=== PATIENT | female | born 1965 | race Caucasian/White ===

== ENCOUNTER → 2016-08-21 07:20 | Emergency (ER) | payer SELFPAY ==
[~2016-08-21 07:20] MED LIST: Sertraline* 100 MG TAB PO ONE
--- NOTE | 2016-08-21 08:41 | ED ---
Psychiatric Complaint - HPI Summary HPI Summary: 51F with PTSD presents for zoloft prescription refill. She states she was on zoloft and moved her and her primary in [place] can't write a script for here. She states she has been without it for 3 days and feels horrible. She feels fatigued and nauseous from stopping the medication. She denies any SI/HI. - History Of Current Complaint Chief Complaint: EDGeneral Time Seen by Provider: 08/21/16 08:31 - Allergies/Home Medications Allergies/Adverse Reactions: Allergies Allergy/AdvReac Type Severity Reaction Status Date / Time No Known Allergies Allergy Verified 08/21/16 08:47 PMH/Surg Hx/FS Hx/Imm Hx Endocrine/Hematology History: Denies: Hx Anticoagulant Therapy Psychiatric History: Reports: Hx Post Traumatic Stress Disorder Infectious Disease History: No Infectious Disease History: Denies: Traveled Outside the [place] in Last 30 Days - Family History Known Family History: Positive: Hypertension - Social History Alcohol Use: None Substance Use Type: Reports: None Smoking Status (MU): Never Smoked Tobacco Review of Systems Positive: Fatigue. Negative: Fever Negative: Chest Pain Negative: Shortness Of Breath Positive: Nausea All Other Systems Reviewed And Are Negative: Yes Physical Exam Triage Information Reviewed: Yes Vital Signs On Initial Exam: Initial Vitals Temp Pulse Resp BP Pulse Ox 97.1 F 64 20 133/87 99 08/21/16 07:21 08/21/16 07:21 08/21/16 07:21 08/21/16 07:21 08/21/16 07:21 Vital Signs Reviewed: Yes Appearance: Positive: Well-Appearing Skin: Positive: Warm, Dry Head/Face: Positive: Normal Head/Face Inspection Eyes: Positive: Normal, Conjunctiva Clear ENT: Positive: Normal ENT inspection, Pharynx normal, TMs normal Respiratory/Lung Sounds: Positive: Clear to Auscultation, Breath Sounds Present Cardiovascular: Positive: Normal, RRR Abdomen Description: Positive: Nontender, Soft Bowel Sounds: Positive: Present Diagnostics - Vital Signs Vital Signs Temp Pulse Resp BP Pulse Ox 08/21/16 07:24 97.3 F 65 20 133/87 98 08/21/16 07:21 97.1 F 64 20 133/87 99 - Laboratory Lab Statement: Any lab studies that have been ordered have been reviewed, and results considered in the medical decision making process. Course/Dx - Course Course Of Treatment: 51F with PTSD presents for zoloft prescription refill. She states she was on zoloft and moved her and her primary in [place] can't write a script for here. She states she has been without it for 3 days and feels horrible. She feels fatigued and nauseous from stopping the medication. She denies any SI/HI. PE normal. wrote script for zofolt and gave dose here. patient understands and agrees with plan - Differential Dx/Clinical Impression Differential Diagnosis/HQI/PQRI: Positive: Other - PTSD, medication refill Provider Diagnosis: Encounter for medication refill Discharge - Discharge Plan Condition: Good Disposition: HOME Prescriptions: Sertraline* [Zoloft*] 100 mg PO DAILY #30 tab Referrals: [facility] [Outside] Additional Instructions: Take zoloft as prescribed Set up primary care physician Return to ED if develop any new or worsening symptoms
== END | disposition home or self-care (01) ==
LOC: ED 07:20
DX: Z76.0 Encounter for issue of repeat prescription (principal); R53.83 Other fatigue; R11.0 Nausea
CPT/HCPCS: 99282; A9270-GY